=== PATIENT | female | born 1990 | race Hispanic/Latino ===

== ENCOUNTER 2019-06-09 16:16 | Inpatient (IN) | payer BC, OTHER ==
[2019-06-09] MEDS ORDERED: Butorphanol Tartrate 1 MG/ML VIAL SLOW IVP PRN (16:53)
[2019-06-09] MEDS ORDERED: HYDROcodone/Acetaminophen 5/325 mg Tablet PO PRN (16:53)
[2019-06-09] MEDS ORDERED: Carboprost 250 MCG/ML AMP IM PRN (16:53)
[2019-06-09] MEDS ORDERED: Diphenoxylate HCl/Atropine Tablet PO PRN (16:53)
[2019-06-09] MEDS ORDERED: hydrALAZINE 20 MG/ML VIAL SLOW IVP PRN ×2 (16:53→17:40)
[2019-06-09] MEDS ORDERED: Methylergonovine 0.2 MG/ML VIAL IM PRN (16:53)
[2019-06-09] MEDS ORDERED: Ibuprofen 800 MG TAB PO PRN (16:53)
[2019-06-09] MEDS ORDERED: Ondansetron PF 4 MG/2 ML Vial IVP PRN ×2 (16:53→17:40)
[2019-06-09] MEDS ORDERED: Lidocaine 1% (PF) 30 ML VIAL SC PRN ×2 (16:53→17:40)
[2019-06-09] MEDS ORDERED: Misoprostol 200 MCG TAB PR PRN (16:53)
[2019-06-09] MEDS ORDERED: Promethazine HCl 25 MG/ML VIAL IM PRN ×2 (16:53→17:40)
[2019-06-09] MEDS ORDERED: Acetaminophen 500 MG TAB PO PRN (16:53)
[2019-06-09] MEDS ORDERED: NS / Oxytocin 40 units/1000ml 1,000 ML IV PRN ×2 (16:53→17:40)
[2019-06-09 16:58] VITALS: BMI 38.2
[2019-06-09 17:14] LABS: Hemoglobin 12.7 g/dL (12.0-16.0); Mean Corpuscular Hemoglobin 29.3 pg (27.0-31.0); Mean Corpuscular Volume 86.2 fL (78.0-98.0); Mean Platelet Volume 8.5 fL (7.4-10.4); Platelet Count 282 thou/uL (130-400); RBC Distribution Width 11.6 % (11.5-14.5); Red Blood Cell (RBC) Count 4.34 mill/uL (4.20-5.40); White Blood Cell (WBC) Count 12.4 thou/uL (4.8-10.8)
[2019-06-09 17:53] LABS: HBSAg Index 0.35 S/CO (0-0.99); Hep B Surf Ag Non-Reactive S/CO (NonReactive); Syphilis Antibody Nonreactive (Nonreactive); Syphilis Antibody Index 0.06 S/CO (<1.00 Non-Reactive)
[2019-06-10] MEDS ORDERED: NS w/ Oxytocin 10 units 500 ML IV SCH ×2 (03:00)
[2019-06-10] MEDS: Lactated Ringer's 1,000 ML IV SCH ×5 (03:31→14:30)
[2019-06-10] MEDS: Misoprostol 100 MCG TAB VAG SCH ×4 (03:31→20:10)
--- NOTE | 2019-06-10 08:27 | PDOC.LDHP ---
Labor and Delivery H&P Chief complaint: scheduled induction (oligo, single umbilical artery) HPI: 28yo at 37w3d by LMP for IOL due to oligohydramnios on sono LEYDI 5cm and single umbilical artery. No complaints, cramping, no LOF, VB. Current gestational age (weeks): 37 Allergies/Adverse Reactions: Allergies Allergy/AdvReac Type Severity Reaction Status Date / Time No Known Allergies Allergy Verified 06/09/19 16:59
[2019-06-10] MEDS ORDERED: Lidocaine 1% (PF) 30 ML VIAL ONE (11:12)
[2019-06-10] MEDS ORDERED: NS / Oxytocin 40 units/1000ml 1,000 ML ONE (11:12)
[2019-06-10] MEDS ORDERED: Fentanyl 4 mcg/Bup 0.1% Cadd 100 ML ONE ×2 (12:49→20:04)
--- NOTE | 2019-06-10 12:59 | PDOC.LDPN ---
Labor & Delivery Progress Note - Subjective Subjective: painful contractions - Objective Vital signs reviewed and normal: yes General: NAD Uterine fundus: non tender Dilation: 2 Effacement: 50% Station: -2 FHT: category 1 [place] contractions every: 3-4min Procedures: cook balloon placed 40/40 Plan: pitocin for augmentation (pt desiring epidural, will start pitocin 1x1 max 10 and incr balloon to 80/80cc, FHT reassuring)
[2019-06-10] MEDS ORDERED: diphenhydrAMINE 50 MG/ML VIAL IVP PRN (13:31)
[2019-06-10] MEDS ORDERED: Naloxone HCl 0.4 mg/ml Vial IVP PRN ×2 (13:31)
[2019-06-10] MEDS ORDERED: Lactated Ringer's 500 ML IV PRN (13:31)
[2019-06-10] MEDS ORDERED: Acetaminophen 325 MG TAB PO PRN (13:31)
[2019-06-10] MEDS ORDERED: Ondansetron PF 4 MG/2 ML Vial IVP PRN (13:31)
[2019-06-10] MEDS ORDERED: ePHEDrine/0.9% NaCl/PF SYRINGE 50 mg/10 ml SLOW IVP PRN (13:31)
[2019-06-10] MEDS ORDERED: Promethazine HCl 25 MG/ML VIAL IM PRN (13:31)
[2019-06-10] MEDS ORDERED: Communication Order-Pharmacy FS SCH (13:45)
--- NOTE | 2019-06-10 19:26 | PDOC.LDPN ---
Labor & Delivery Progress Note - Subjective Subjective: comfortable - Objective Vital signs reviewed and normal: yes General: NAD Uterine fundus: non tender Dilation: 6 Effacement: 50% Station: -2 FHT: category 2 (130/mod/+ accels/occasionally variable decels) [place] contractions every: 3-4min AROM: clear fluid - Assessment (1) Term Code(s): Z34.90 - ENCNTR FOR SUPRVSN OF NORMAL , UNSP, UNSP TRIMESTER Current Visit: Yes Status: Acute Plan: continue plan of care, pitocin for augmentation -: 28yo at 37.3wks by LMP IOL due to oligohydramnios sIUP IOL - aROM with clear fluid at 1715 - FHTs Cat 2 due to occasional variable decels. - Continue labor augmentation with Pitocin - SVE /-2
[2019-06-10] MEDS: Fentanyl 4 mcg/Bupivacaine 0.1% Cassette 100 ML EPIDURAL SCH (20:09)
--- NOTE | 2019-06-11 00:12 | PDOC.LDPN ---
Labor & Delivery Progress Note - Subjective Subjective: comfortable - Objective Vital signs reviewed and normal: yes General: NAD Uterine fundus: non tender Dilation: 6 Effacement: 75% Station: -2 FHT: category 1 [place] contractions every: 2-3min - Assessment (1) Term Code(s): Z34.90 - ENCNTR FOR SUPRVSN OF NORMAL , UNSP, UNSP TRIMESTER Current Visit: Yes Status: Acute Plan: continue plan of care, pitocin for augmentation -: 28yo at 37.3wks by LMP IOL due to oligohydramnios sIUP IOL - FHTs Cat 1 - Continue labor augmentation with Pitocin - SVE /-2
[2019-06-11] MEDS ORDERED: Fentanyl 4 mcg/Bup 0.1% Cadd 100 ML ONE ×2 (01:58→07:24)
[2019-06-11] MEDS: Fentanyl 4 mcg/Bupivacaine 0.1% Cassette 100 ML EPIDURAL SCH ×2 (02:11→07:48)
[2019-06-11] MEDS: Lactated Ringer's 1,000 ML IV SCH (02:11)
[2019-06-11] MEDS: Misoprostol 100 MCG TAB VAG SCH ×5 (02:12→13:59)
[2019-06-11] MEDS ORDERED: Lidocaine 2% MPF 10 ML AMP (For Epidural Use) ONE (11:11)
[2019-06-11] MEDS ORDERED: Bupivacaine HCl 0.5%/Epinephrine 1:200,000/PF 30 ml Vial ONE (11:11)
--- NOTE | 2019-06-11 11:32 | PDOC.OPDEL ---
OB Operative/Delivery Note Delivery Dr/Surgeon: Jamie Assist: n/a Pre-Delivery Diagnosis: medically indicated induction (oligo, SUA) Procedure/Post Delivery Dx: spontaneous vaginal delivery Weeks gestation: 37 Anesthesia: epidural - Findings A Sex: male - Additional Findings/Plan Placenta delivered: spontaneous Repaired Obstetrical Laceration: none Estimated blood loss: 136cc Compilations/Other Findings: NC and body cord, tight, delivered through, true knot in cord, cord gas sent, Zachary present Post delivery plan: routine recovery
[2019-06-11] MEDS ORDERED: Zolpidem Tartrate 5 MG TAB PO PRN (13:28)
[2019-06-11] MEDS ORDERED: Lanolin Ointment 7 GM TUBE TOP PRN (13:28)
[2019-06-11] MEDS ORDERED: hydrALAZINE 20 MG/ML VIAL SLOW IVP PRN (13:28)
[2019-06-11] MEDS ORDERED: Preparation H Ointment 28 GM TUBE PR PRN (13:28)
[2019-06-11] MEDS ORDERED: NS / Oxytocin 40 units/1000ml 1,000 ML IV SCH (13:28)
[2019-06-11] MEDS ORDERED: Ondansetron PF 4 MG/2 ML Vial IVP PRN (13:28)
[2019-06-11] MEDS ORDERED: diphenhydrAMINE 25 MG CAP PO PRN (13:28)
[2019-06-11] MEDS ORDERED: Benzocaine-Menthol 82.5 ML CAN TOP PRN (13:28)
[2019-06-11] MEDS ORDERED: HYDROcodone/Acetaminophen 5/325 mg Tablet PO PRN ×2 (13:28)
[2019-06-11] MEDS ORDERED: Adacel (T-DAP) 0.5 ML SYRINGE IM ONE (13:28)
[2019-06-11] MEDS ORDERED: Milk Of Magnesia 30 ML UDCUP PO PRN (13:28)
[2019-06-11] MEDS ORDERED: Bisacodyl 10 MG SUPP PR PRN (13:28)
[2019-06-11] MEDS: Ibuprofen 800 MG TAB PO SCH ×2 (14:13→21:30)
[2019-06-11] MEDS: Ferrous Sulfate 325 MG TAB PO SCH (17:40)
[2019-06-11] MEDS: Docusate Calcium (SURFAK) 240 MG CAP PO SCH (21:30)
[2019-06-12] MEDS: Ibuprofen 800 MG TAB PO SCH ×3 (05:46→21:51)
--- NOTE | 2019-06-12 07:54 | PDOC.PP ---
Post Progress Note Post Day #: 1 Subjective: 28 yo F PP day 1 s/p @ 37 weeks. Pt doing well. Tolerating PO, No CP SOB, NVDC. Occasional cramping. Scant bleeding. PO intake tolerated: yes Flatus: no Ambulation: yes Vital Signs (12 hours) Temp Pulse Resp BP 06/12/19 04:15 98.0 F 81 18 108/61 06/11/19 23:26 98.2 F 95 18 114/58 L Weight Weight 88.904 kg - Physical Examination General: NAD Cardiovascular: no m/r/g, RRR Respiratory: clear to auscultation bilaterally, non-labored breathing Abdominal: + bowel sounds, no distention, appropriately TTP Extremities: negative homans (B) Skin: no rash Neurological: no gross focal deficits Psychiatric: normal affect Result Diagrams: 06/09/19 17:07 Additional Labs: Post Labs Blood Type O POSITIVE 06/09/19 17:48 Hep Bs Antigen Non-Reactive S/CO (NonReactive) 06/09/19 17:07 (1) , delivered Code(s): O80 - ENCOUNTER FOR FULL-TERM UNCOMPLICATED DELIVERY Status: Acute - Assessment/Plan 1) TIUP, delivered - pt doing well and pain well controlled - cont routine recovery - VSS - will plan for continued obs for one more day and likely dc to home tomorrow Addendum - Attending - Attending Attestation Date/Time: 06/13/19 1042 I personally evaluated the patient and discussed the management with Dr. Villarreal I agree with the History, Examination, Assessment and Plan documented above with any addition or exceptions noted below. vitals 122/74 98.4 72 20
[2019-06-12] MEDS: Prenatal Vitamin 1 TAB PO SCH (09:16)
[2019-06-12] MEDS: Docusate Calcium (SURFAK) 240 MG CAP PO SCH ×2 (09:16→21:52)
[2019-06-12] MEDS: Ferrous Sulfate 325 MG TAB PO SCH ×2 (09:17→18:46)
[2019-06-13] MEDS: Ibuprofen 800 MG TAB PO SCH ×2 (06:10→13:56)
[2019-06-13 07:41] VITALS: BP 130/81; TEMP 97.8
[2019-06-13] MEDS: Ferrous Sulfate 325 MG TAB PO SCH ×2 (08:15→14:36)
[2019-06-13] MEDS: Docusate Calcium (SURFAK) 240 MG CAP PO SCH (08:15)
[2019-06-13] MEDS: Prenatal Vitamin 1 TAB PO SCH (08:15)
== END 2019-06-13 16:45 | disposition home or self-care (01) | DRG 807 ==
LOC: L&D 16:16 → 3SW 06-11 13:42
PROVIDERS: ADMIT Student in an Organized Health Care Education/Training Program; ATTEND Student in an Organized Health Care Education/Training Program
PROC: 10E0XZZ Delivery of Products of Conception, External Approach (ICD-10-PCS; principal; 2019-06-11)
PROC: 3E033VJ Introduction of Other Hormone into Peripheral Vein, Percutaneous Approach (ICD-10-PCS; 2019-06-11)
PROC: 0U7C7ZZ Dilation of Cervix, Via Natural or Artificial Opening (ICD-10-PCS; 2019-06-11)
DX: O41.03X0 Oligohydramnios, third trimester, not applicable or unspecified (principal); Z37.0 Single live birth; O69.1XX0 Labor and delivery complicated by cord around neck, with compression, not applicable or unspecified; Z3A.37 37 weeks gestation of pregnancy
CPT/HCPCS: 36415; 51702; 82805; 85027; 86780; 86850; 86900; 86901; 87340; C1726; J0670; J2001; J2405; J2590